=== PATIENT | male | born 1955 | race Caucasian/White ===

== ENCOUNTER → 2018-07-21 | Outpatient (CLI) | payer BC ==
--- NOTE | 2018-07-25 10:27 | PCVCIMAG ---
APPROVED REPORT Study performed: 07/21/2018 08:13:15 EXAM: Comprehensive 2D, Doppler, and color-flow Echocardiogram Patient Location: Echo lab Status: routine BSA: 2.22 HR: 94 bpmBP: 140/90 mmHg Rhythm: NSR Other Information Study Quality: Adequate Risk Factors: Cardiac Risk Factors: Hyperlipidemia, HTN Indications Hypertension/HDD Elevated calcium score. 2D Dimensions IVSd: 10.83 (7-11mm)LVOT Diam: 21.51 (18-24mm) LVDd: 42.56 mm PWd: 9.25 (7-11mm) LVDs: 27.43 (25-40mm) Left Atrium: 37.25 (27-40mm) Aortic Root: 37.82 mm LV Single Plane 4CH: 63.95 % LV Single Plane 2CH: 61.59 % Biplane EF: 61.6 % Volumes Left Atrial Volume (Systole) Single Plane 4CH: 49.54 mLSingle Plane 2CH: 50.44 mL LA ESV Index: 24.00 mL/m2 Aortic Valve AoV Peak Toby.: 1.33 m/s AO Peak Gr.: 7.04 mmHg Mitral Valve E/A Ratio: 1.0 MV Decel. Time: 298.54 ms MV E Max Toby.: 0.81 m/s MV A Toby.: 0.83 m/s TDI E/Lateral E': 8.10E/Medial E': 6.75 Medial E' Toby.: 0.12 m/s Lateral E' Toby.: 0.10 m/s Pulmonary Valve PV Peak Gr.: 2.23 mmHg Pulmonary Vein P Vein S: 0.49 m/sP Vein A: 0.30 m/s P Vein D: 0.54 m/sP Vein A Dur.: 131.5 msec P Vein S/D Ratio: 0.91 Left Ventricle The left ventricle is normal size. There is normal LV segmental wall motion. There is normal left ventricular wall thickness. Left ventricular systolic function is normal. The left ventricular ejection fraction is within the normal range. LVEF is 60-65%. The left ventricular diastolic function is normal. Right Ventricle The right ventricle is normal size. The right ventricular systolic function is normal. Atria The left atrium size is normal. The right atrium size is normal. Aortic Valve The aortic valve is normal in structure. No aortic regurgitation is present. There is no aortic valvular stenosis. Mitral Valve The mitral valve is normal in structure. Trace mitral regurgitation. No evidence of mitral valve stenosis. Tricuspid Valve The tricuspid valve is normal in structure. There is no tricuspid valve regurgitation noted. Pulmonic Valve The pulmonary valve is normal in structure. There is no pulmonic valvular regurgitation. Great Vessels The aortic root is normal in size. IVC is normal in size and collapses >50% with inspiration. Pericardium There is no pericardial effusion. <Conclusion> The left ventricle is normal size. There is normal left ventricular wall thickness. Left ventricular systolic function is normal. The left ventricular diastolic function is normal. The right ventricle is normal size. The left atrium size is normal. The aortic valve is normal in structure. Trace mitral regurgitation. There is no tricuspid valve regurgitation noted.
== END | disposition home or self-care (01) ==
LOC: PCVCIMAG 08:31
PROVIDERS: ATTEND Internal Medicine Cardiovascular Disease
DX: R06.09 Other forms of dyspnea (principal); R93.1 Abnormal findings on diagnostic imaging of heart and coronary circulation
CPT/HCPCS: 93306

== ENCOUNTER → 2018-07-29 | Outpatient (CLI) | payer BC ==
--- NOTE | 2018-07-29 15:21 | PCVCIMAG ---
APPROVED REPORT Study performed: 07/29/2018 14:07:54 Exam: Stress Echocardiogram Indication: CAD , Dyspnea Patient Location: Echo lab Stress Nurse: Angeles Faith RN Room #: 2 Status: routine Ht: 6 ft 0 in HR: 88 bpm BP: 130/90 mmHg Rhythm: NSR Medical History Medical History: CAD non obstructive, HTN, Hyperlipidemia Cardiac Risk Factors: HTN, Hyperlipidemia Previous Cardiac Procedures: none Pretest Chest Pain Characteristics: No chest pain Exercise History: Physically active Procedure The patient underwent an Exercise Stress Test using the Brice Protocol. Blood pressure, heart rate, and EKG were monitored. An Echocardiogram was performed by medical record technician in four stages in quad fashion. At peak stress, four selected images were obtained and placed side by side with resting images for comparison. Stress Test Details Stress Test: Exercise stress testing was performed using a Brice protocol. HR Resting HR: 88 bpmMax Heart Rate (APMHR): 160 bpm Max HR Achieved: 162 bpmTarget HR (85% APMHR): 136 bpm % of APMHR: 101 Recovery HR: 100 bpm HR response to stress: Normal HR response to stress BP Resting BP: 130/90 mmHg Max BP: 210/90 mmHg Recovery BP: 150/88 mmHg ECG Resting ECG: Sinus Rhythm Stress ECG: Sinus Rhythm ST Change: Non-ischemic Arrhythmia: Rare PVCs Recovery ECG: Sinus Rhythm Recovery ST Change: Non-ischemic Recovery Arrhythmia: Rare PVCs Clinical Reason for Termination: Maximal effort Stress Symptoms: none Exercise duration: 12 min 00 sec Highest Stage Achieved: Stage 4: 4.2 mph at 16% grade. Exercise capacity: 13.7 METs Overall Exercise Capacity for Age: Good Scale: Active Angina Score: None No complications. Stress ECG Conclusion The patient exercised according to the BRICE protocol for 12:00 mins; achieving a work level of 13.7 METS. The resting heart rate of 88 bpm hesham to a maximum heart rate of 162 bpm. This value represent 101% of the maximal, age-predicted heart rate. The resting blood pressure of 130/90mmHg, hesham to a maximum blood pressure of 210/90mmHg. The exercise test was stopped due to fatigue. Pre-Stress Echo The resting Echocardiogram showed normal left ventricular contractility with an estimated Ejection Fraction of about 55-60%. Normal wall motion in all segments on baseline images. Post-Stress Echo The stress Echocardiogram showed normal left ventricular contractility with an estimated Ejection Fraction of about 65-70%. Normal augmentation of wall motion in all segments on post stress images. Clinical No clinical or ECG evidence for ischemia. Conclusion Clinical Response: Non-ischemic Exercise Capacity: Above average Stress ECG Response: Non-ischemic Stress Echo Images: Non-ischemic No clinical, EKG or echocardiographic evidence for ischemia. No echocardiographic evidence for exercise induced ischemia. Normal stress echocardiogram with maximal exercise stress. No prior study available for comparison. <Conclusion> No clinical, EKG or echocardiographic evidence for ischemia. No echocardiographic evidence for exercise induced ischemia. Normal stress echocardiogram with maximal exercise stress.
== END | disposition home or self-care (01) ==
LOC: PCVCIMAG 14:37
PROVIDERS: ATTEND Internal Medicine Cardiovascular Disease
DX: I10 Essential (primary) hypertension (principal); R93.1 Abnormal findings on diagnostic imaging of heart and coronary circulation
CPT/HCPCS: 93325; 93351